=== PATIENT | male | born 1960 | race Caucasian/White ===

== ENCOUNTER 2018-06-25 23:04 | Emergency (ER) | payer SELFPAY ==
[~2018-06-25] VITALS: Ht 177.8 cm; Wt 99.8 kg
[2018-06-25 23:46] VITALS: BP 145/82
== END 2018-06-26 03:25 | disposition home or self-care (01) ==
LOC: ER 23:05
DX: M10.9 Gout, unspecified (principal); Z76.0 Encounter for issue of repeat prescription